=== PATIENT | female | born 1965 | race Caucasian/White ===

== ENCOUNTER 2021-10-30 17:40 | Observation (INO) ==
[2021-10-30] MEDS ORDERED: Acetaminophen 325 MG TABLET PO PRN (20:55)
[2021-10-30] MEDS ORDERED: Naloxone 0.4 MG/ML INJ IVP PRN (20:55)
[2021-10-30] MEDS ORDERED: Ondansetron ODT 4 MG TAB.RAPDIS SL PRN (20:55)
[2021-10-30] MEDS ORDERED: Melatonin 3 MG TABLET PO PRN (20:55)
[2021-10-30] MEDS ORDERED: *HR* OxyCODONE Immed Rel 5 MG TABLET PO PRN (21:00)
[2021-10-30] MEDS ORDERED: Dextrose 4 GM Chewable Tablets PO PRN ×2 (21:26)
[2021-10-30] MEDS ORDERED: D5% in Water 1,000 ML IVC PRN (21:26)
[2021-10-30] MEDS ORDERED: *HR* Dextrose 50 % in Water (Syg) 50 ML SYRINGE IVP PRN (21:26)
[2021-10-30] MEDS ORDERED: Ibuprofen 600 MG TABLET PO PRN (21:47)
[2021-10-31 01:02] LABS: Hematocrit 39.3 % (35.3-44.9); Hemoglobin 13.3 g/dL (11.5-15.4); Mean Corpuscular HGB Conc 33.8 g/dL (31.6-35.5); Mean Corpuscular Hemoglobin 31.2 pg (28.0-33.3); Mean Corpuscular Volume 92.3 fL (83.0-100.0); Mean Platelet Volume 10.4 fL (9.4-12.4); Platelet Count 177 K/mcL (140-400); Red Blood Count 4.26 M/mcL (3.82-4.97); Red Cell Distribution Width 13.8 % (11.5-14.5); White Blood Count 6.7 K/mcL (4.3-11.1)
[2021-10-31 01:10] LABS: Prothrombin Time 11.6 Seconds (9.4-12.1)
[2021-10-31 01:13] LABS: Activated Partial Thrombo Time 29.9 Seconds (26.0-36.0)
[2021-10-31 01:24] LABS: BUN/Creatinine Ratio 21 (6-26); Blood Urea Nitrogen 14 mg/dL (6-20); Calcium 8.5 mg/dL (8.6-10.3); Carbon Dioxide 25 mEq/L (23-29); Chloride 108 mEq/L (98-107); Chol/HDL Ratio 3.4 (0-4.9); Cholesterol 158 mg/dL (< 200); Glucose 102 mg/dL (70-105); HDL Cholesterol 46 mg/dL (40-59); LDL Cholesterol,Calculated 97 mg/dL (< 100); Magnesium 1.6 mg/dL (1.6-2.6); Osmolality,Calculated 289 (280-300); Phosphorous 2.8 mg/dL (2.7-4.5); Potassium 3.6 mEq/L (3.5-5.1); Sodium 139 mEq/L (136-145); Triglycerides 75 mg/dL (< 150); eGFR For African Americans > 60 (> 60); eGFR For Non-African Americans > 60 (> 60)
[2021-10-31] MEDS ORDERED: *HR* HYDROmorphone PF 0.5 MG/0.5 ML SYRINGE IVP PRN (10:53)
[2021-10-31] MEDS ORDERED: Ondansetron 4 MG/2 ML VIAL IVP PRN ×2 (10:53→14:58)
[2021-10-31] MEDS ORDERED: Ringers Solution, Lactated 1,000 ML IVC SCH ×2 (11:30→14:58)
[2021-10-31] MEDS ORDERED: CeFAZolin Syr 2,000MG/20 ML 2,000 MG/20 ML SYRINGE IVPB ONE (11:30)
[2021-10-31] MEDS ORDERED: Bupivacaine 0.5%-Epi 1:200,000 50 ML VIAL ONE (11:45)
[2021-10-31] MEDS ORDERED: Bupivacaine/EPI 1:200k 0.25% 50 ML VIAL ONE (11:45)
[2021-10-31] MEDS ORDERED: ROPIVACAINE/PF/NS 0.25% 1 EACH SYRINGE INTRAART ONE (11:56)
[2021-10-31] MEDS ORDERED: *HR* Midazolam HCl 2 MG/2 ML VIAL ONE (12:03)
[2021-10-31] MEDS ORDERED: *HR* FentaNYL (PF) 100 MCG/2 ML VIAL ONE (12:03)
[2021-10-31] MEDS ORDERED: *HR* Propofol 200 MG/20 ML VIAL IVP ONE (12:22)
[2021-10-31] MEDS ORDERED: Ondansetron 4 MG/2 ML VIAL ONE (12:41)
[2021-10-31] MEDS ORDERED: Lidocaine -MPF 2% 2 ML VIAL ONE (12:41)
[2021-10-31] MEDS: *HR* FentaNYL (PF) 100 MCG/2 ML VIAL IVP PRN ×2 (13:54→14:01)
[2021-10-31] MEDS ORDERED: Ketorolac 30 MG/ML VIAL IVP ONE (14:21)
[2021-10-31] MEDS ORDERED: Pregabalin 75 MG CAPSULE PO ONE (14:22)
[2021-10-31] MEDS ORDERED: Ondansetron ODT 4 MG TAB.RAPDIS SL PRN (14:58)
[2021-10-31] MEDS ORDERED: Melatonin 3 MG TABLET PO PRN (14:58)
[2021-10-31] MEDS ORDERED: Ibuprofen 600 MG TABLET PO PRN (14:58)
[2021-10-31] MEDS ORDERED: Dextrose 4 GM Chewable Tablets PO PRN ×2 (14:58)
[2021-10-31] MEDS ORDERED: Naloxone 0.4 MG/ML INJ IVP PRN (14:58)
[2021-10-31] MEDS ORDERED: D5% in Water 1,000 ML IVC PRN (14:58)
[2021-10-31] MEDS ORDERED: *HR* Dextrose 50 % in Water (Syg) 50 ML SYRINGE IVP PRN (14:58)
[2021-10-31] MEDS ORDERED: ceFAZolin 2,000 MG in 0.9 % Sodium Chloride 100 ML IVPB SCH (20:00)
[2021-10-31] MEDS: CeFAZolin 2,000 MG/120 ML BAG IVPB SCH (20:01)
[2021-11-01] MEDS: *HR* OxyCODONE Immed Rel 5 MG TABLET PO PRN ×2 (00:21→13:11)
[2021-11-01] MEDS: CeFAZolin 2,000 MG/120 ML BAG IVPB SCH (04:15)
[2021-11-01 05:15] LABS: Basophils % 0.1 %; Hematocrit 38.8 % (35.3-44.9); Hemoglobin 12.9 g/dL (11.5-15.4); Immature Granulocytes % 0.6 % (0-4); Lymphocytes # 1.5 K/mcL (0.6-4.6); Lymphocytes % 13.7 %; Mean Corpuscular HGB Conc 33.2 g/dL (31.6-35.5); Mean Corpuscular Hemoglobin 30.6 pg (28.0-33.3); Mean Corpuscular Volume 91.9 fL (83.0-100.0); Mean Platelet Volume 10.5 fL (9.4-12.4); Monocytes # 0.6 K/mcL (0.0-1.3); Monocytes % 5.8 %; Neutrophils # 8.9 K/mcL (1.6-8.9); Platelet Count 184 K/mcL (140-400); Red Blood Count 4.22 M/mcL (3.82-4.97); Red Cell Distribution Width 13.3 % (11.5-14.5); Segmented Neutrophils % 79.8 %
[2021-11-01 05:17] LABS: White Blood Count 11.1 K/mcL (4.3-11.1)
[2021-11-01 05:36] LABS: BUN/Creatinine Ratio 22 (6-26); Blood Urea Nitrogen 16 mg/dL (6-20); Calcium 8.5 mg/dL (8.6-10.3); Carbon Dioxide 22 mEq/L (23-29); Chloride 109 mEq/L (98-107); Glucose 175 mg/dL (70-105); Osmolality,Calculated 291 (280-300); Sodium 138 mEq/L (136-145); eGFR For African Americans > 60 (> 60); eGFR For Non-African Americans > 60 (> 60)
[2021-11-01 06:50] VITALS: O2SAT 96
[2021-11-01] MEDS ORDERED: Acetaminophen 325 MG TABLET PO PRN (07:24)
[2021-11-01 10:44] VITALS: BP 114/71; PULSE 66; TEMP 97.9
== END 2021-11-01 13:28 | disposition home or self-care (01) ==
LOC: 4WAOSI → SUATTDRO 20:34
PROVIDERS: ADMIT Pharmacist; ATTEND Internal Medicine